=== PATIENT | male | born 1985 | race Caucasian/White ===

== ENCOUNTER 2022-04-12 18:32 | Emergency (ER) | payer SELFPAY ==
--- NOTE | ~2022-04-12 | US_ITS ---
EXAMINATION: ULTRASOUND ABDOMEN COMPLETE. CHEST X-RAY. CLINICAL INFORMATION: Epigastric/right upper quadrant tenderness to palpation. Chest pain. COMPARISON: None TECHNIQUE: Chest AP 1 view. Limited ultrasound imaging of right upper quadrant and left upper quadrant was performed. FINDINGS: Chest x-ray: The lungs are well-expanded and clear. Heart size and pulmonary vascularity is normal. No gross bony abnormality seen. Limited abdomen ultrasound: The pancreas is obscured by overlying gas. Visualized mid and the distal abdominal aorta are normal caliber. Proximal segment is not seen. IVC is normal caliber. The liver is normal size, contour and density. No focal lesion seen. There is no intrahepatic ductal dilatation. The gallbladder is normally distended without any echogenic stones or wall thickening. CBD is nondilated measuring 0.3 cm. Right kidney measures 10.2 cm and left kidney measures 12.5 cm. There is normal cortical thickness. No echogenic stones or hydronephrosis seen. Spleen measures 11.3 cm. US/US abdomen complete IMPRESSION: Unremarkable limited abdomen ultrasound with no focal abnormality seen in the right or left upper quadrant. Unremarkable chest x-ray.
[2022-04-12 19:23] VITALS: BP 142/82; PULSE 86; RESP 20; TEMP 36.5; O2SAT 99; BMI 29.3
--- NOTE | 2022-04-12 19:24 | ED.ABDPAIN ---
HPI - Abdominal Pain General Chief Complaint: Abdominal Pain <MYA Echevarria - Last Filed: 04/12/22 19:28> Stated Complaint: severe abdominal pain, to chest and throat <MYA Echevarria - Last Filed: 04/12/22 19:28> Time Seen by Provider: 04/13/22 02:07 <MYA Echevarria - Last Filed: 04/12/22 19:28> Source: patient and family <Sree Sears MD - Last Filed: 04/13/22 02:45> Mode of arrival: ambulatory <Sree Sears MD - Last Filed: 04/13/22 02:45> Limitations: no limitations <Sree Sears MD - Last Filed: 04/13/22 02:45> History of Present Illness HPI narrative: 36-year-old male came in for evaluation of bilateral chest wall pain since this morning, patient woke up from sleep found to have epigastric pain and bilateral chest wall pain radiated to the back and upper neck, pain is worsening with movement and taking a deep breath, pain is constant since this morning, no SOB, 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 No fever, no chills. <Sree Sears MD - Last Filed: 04/13/22 02:45> Related Data Allergies/Adverse Reactions: Allergies Allergy/AdvReac Type Severity Reaction Status Date / Time No Known Allergies Allergy Verified 04/12/22 19:26 <MYA Echevarria - Last Filed: 04/12/22 19:28> Review of Systems Review of Systems All other systems are reviewed and are negative Constitutional: Reports as per HPI and Reports no additional constitutional complaints Eyes: Reports as per HPI and Reports no additional eye complaints Reports system reviewed and no additional complaints, except as documented Cardiovascular: Reports as per HPI and Reports no additional cardiovascular complaints Respiratory: Reports as per HPI and Reports no additional respiratory complaints Gastrointestinal: Reports as per HPI and Reports no additional gastrointestinal complaints Genitourinary: Reports no additional female genitourinary complaints Musculoskeletal: Reports no additional musculoskeletal complaints Skin/Breast: Reports system reviewed and no additional complaints, except as docu Psychiatric: Reports no additional psychiatric complaints Endocrine: Reports no additional endocrine complaints Hematologic/Lymphatic: Reports no additional hematologic/lymphatic complaints Allergic/Immunologic: Reports no additional allergic/immunologic complaints Reports system reviewed and no additional complaints, except as documented and Reports Abnormal speech present <Sree Sears MD - Last Filed: 04/13/22 02:45> [facility] Social History Social History: Social History Advance Directives: No Advance Directives Information Provided: Yes <MYA Echevarria - Last Filed: 04/12/22 19:28> Physical Exam ED Vital Signs: Vital Signs - 24 hr 04/12/22 19:23 Temperature 97.7 F Pulse Rate 86 Respiratory Rate 20 Blood Pressure 142/82 H Pulse Oximetry 99 Oxygen Delivery Method Room Air BMI result Body Mass Index 29.3 <MYA Echevarria - Last Filed: 04/12/22 19:28> Vital Signs - 24 hr 04/12/22 19:23 Temperature 97.7 F Pulse Rate 86 Respiratory Rate 20 Blood Pressure 142/82 H Pulse Oximetry 99 Oxygen Delivery Method Room Air BMI result Body Mass Index 29.3 vital signs have been reviewed as appeared to be correct. Blood pressure normal. Heart rate normal. Respiration rate normal. Temperature normal. Oxygen saturation normal. <Sree Sears MD - Last Filed: 04/13/22 02:45> Appearance: Alert. Oriented X3. No acute distress. Head: Normal external exam. Normocephalic. Atraumatic. No Meng signs noted. No raccoon eyes noted Eyes: PERRLA. EOMI. Conjunctiva and sclera normal. Eyelids normal. ENT: TM's Normal. Pharynx normal. Uvula midline. Moist mucous membranes. No trismus noted. No drooling noted. No muffled voice noted. Neck: Normal inspection. Neck supple. FROM. No adenopathy. Thyroid Normal. No meningeal signs. No neck mass noted. CVS: Normal heart rate and rhythm. Heart sound normal. No murmurs noted. Pulses normal throughout. Respiratory: No respiratory distress. Reproducible bilateral chest wall tenderness diffuse to touch, no step-off, no deformity. Painless inspiration. Breath sounds normal. No wheezes/rales/rhonchi noted. No accessory muscle usage noted or decreased air movement noted. Abdomen: Soft and nontender. Bowel sounds normal in all 4 quadrants. No distention noted. No organomegaly noted. No visible injury noted. Back: No CVA tenderness. Full range of motion noted. Skin: Skin warm and dry. Normal skin color. Normal skin turgor. No rashes/lesions/lacerations noted. Extremities: No lower extremity edema. Extremities exhibit normal range of motion. Extremities nontender. Neuro: Oriented X 3. Cranial nerve exam: II-XII are grossly intact No motor deficit. No sensory deficit. Reflexes normal. <Sree Sears MD - Last Filed: 04/13/22 02:45> Course Course Course Narrative: RME-- 36-year-old male with no significant past medical history presenting to the ED complaining of epigastric abdominal pain radiating to left shoulder and up chest since yesterday. Reports associated dizziness. Pain worse with eating and deep breathing. Abdomen soft with epigastric/RUQ tenderness, no pedal edema EKG, labs, CXR, abdomen ultrasound, IVF ordered in triage <MYA Echevarria - Last Filed: 04/12/22 19:28> Reevaluation(s) Reevaluation #1: 36-year-old male came in with bilateral chest wall pain appears to be a muscle related chest pain feels better with ibuprofen. <Sree Sears MD - Last Filed: 04/13/22 02:45> Time: 02:39 <Sree Sears MD - Last Filed: 04/13/22 02:45> Medical Decision Making Differential Diagnosis Differential Diagnoses: The differential diagnosis associated with the presentation includes ( cardiac event/pneumonia/pneumothorax /chest wall pain due to myofascial etiology / kidney stones/UTI.) <Sree Sears MD - Last Filed: 04/13/22 02:45> Lab Data MDM Lab Attestation statement: I reviewed the patient's lab results. <Sree Sears MD - Last Filed: 04/13/22 02:45> Result Diagrams: : 04/12/22 20:57 04/12/22 20:57 <MYA Echevarria - Last Filed: 04/12/22 19:28> Labs: Lab Results 04/12/22 04/12/22 04/12/22 Range/Units 20:57 20:57 20:57 WBC 8.0 (4.8-10.8) X10*3/uL RBC 4.97 (4.60-5.80) X10*6/uL Hgb 14.3 (14.0-18.0) g/dl Hct 42.8 (42.0-52.0) % MCV 86.1 (80.0-98.0) fL MCH 28.8 (27.0-33.0) pg MCHC 33.4 (31.0-36.0) g/dl RDW 12.9 (11.0-16.0) % Plt Count 224 (160-400) X10*3/uL MPV 9.9 (9.4-12.4) fL Immature Gran % (Auto) 0.4 (0.0-0.4) % Neut % (Auto) 66.1 (45-73) % Lymph % (Auto) 23.4 (20-40) % [place] % (Auto) 8.8 (2-11) % Eos % (Auto) 0.9 (0-4) % Baso % (Auto) 0.4 (0-2) % Lymph # (Auto) 1.9 (1.2-4.9) X10*3/uL [place] # (Auto) 0.7 (0.1-1.2) X10*3/uL Eos # (Auto) 0.1 (0.0-0.4) X10*3/uL Baso # (Auto) 0.0 (0.0-0.2) X10*3/uL Abs Immat Gran (auto) 0.03 (0.00-0.03) X10*3/uL Absolute Neuts (auto) 5.3 (2.0-8.3) x10*3/uL Absolute Nucleated RBC 0.000 (0.0-0.012) X10*3/uL Nucleated RBC % (auto) 0.0 (0.0-0.2) /100WBC Sodium 136 (135-145) mmol/L Potassium 3.7 (3.3-5.1) mmol/L Chloride 101 (96-108) mmol/L Carbon Dioxide 26 (22-29) mmol/L Anion Gap 13 (12-20) BUN 11 (9-16) mg/dL Creatinine 0.76 (0.5-1.4) mg/dL Estim Creat Clear Calc 143.1 Estimated GFR > 60 Random Glucose 102 (60-115) mg/dL Calcium 9.4 (8.4-10.2) mg/dL Magnesium 2.3 (1.6-2.6) mg/dL Total Bilirubin 0.7 (0.0-1.0) mg/dL Direct Bilirubin 0.3 (0.0-0.5) mg/dL AST 23 (5-37) U/L ALT 30 (0-40) U/L Alkaline Phosphatase 78 (39-117) U/L Troponin I High Sens < 3.5 (<3.5-35.0) ng/L Total Protein 7.3 (6.5-8.0) g/dL Albumin 4.4 (3.5-5.0) g/dL Lipase 45 (8-78) U/L Urine Color Urine Appearance Urine pH (5.0-9.0) Ur Specific [place] (1.005-1.025) Urine Protein (Neg-Trace) mg/dL Urine Glucose (UA) (Negative) mg/dL Urine Ketones (Negative) mg/dL Urine Blood (Negative) Urine Nitrite (Negative) Ur Leukocyte Esterase (Negative) 04/12/22 Range/Units 21:01 WBC (4.8-10.8) X10*3/uL RBC (4.60-5.80) X10*6/uL Hgb (14.0-18.0) g/dl Hct (42.0-52.0) % MCV (80.0-98.0) fL MCH (27.0-33.0) pg MCHC (31.0-36.0) g/dl RDW (11.0-16.0) % Plt Count (160-400) X10*3/uL MPV (9.4-12.4) fL Immature Gran % (Auto) (0.0-0.4) % Neut % (Auto) (45-73) % Lymph % (Auto) (20-40) % [place] % (Auto) (2-11) % Eos % (Auto) (0-4) % Baso % (Auto) (0-2) % Lymph # (Auto) (1.2-4.9) X10*3/uL [place] # (Auto) (0.1-1.2) X10*3/uL Eos # (Auto) (0.0-0.4) X10*3/uL Baso # (Auto) (0.0-0.2) X10*3/uL Abs Immat Gran (auto) (0.00-0.03) X10*3/uL Absolute Neuts (auto) (2.0-8.3) x10*3/uL Absolute Nucleated RBC (0.0-0.012) X10*3/uL Nucleated RBC % (auto) (0.0-0.2) /100WBC Sodium (135-145) mmol/L Potassium (3.3-5.1) mmol/L Chloride (96-108) mmol/L Carbon Dioxide (22-29) mmol/L Anion Gap (12-20) BUN (9-16) mg/dL Creatinine (0.5-1.4) mg/dL Estim Creat Clear Calc Estimated GFR Random Glucose (60-115) mg/dL Calcium (8.4-10.2) mg/dL Magnesium (1.6-2.6) mg/dL Total Bilirubin (0.0-1.0) mg/dL Direct Bilirubin (0.0-0.5) mg/dL AST (5-37) U/L ALT (0-40) U/L Alkaline Phosphatase (39-117) U/L Troponin I High Sens (<3.5-35.0) ng/L Total Protein (6.5-8.0) g/dL Albumin (3.5-5.0) g/dL Lipase (8-78) U/L Urine Color Dark Yellow Urine Appearance Clear Urine pH 8.0 (5.0-9.0) Ur Specific [place] 1.025 (1.005-1.025) Urine Protein Trace (Neg-Trace) mg/dL Urine Glucose (UA) Negative (Negative) mg/dL Urine Ketones Trace (Negative) mg/dL Urine Blood Negative (Negative) Urine Nitrite Negative (Negative) Ur Leukocyte Esterase Negative (Negative) <MYA Echevarria - Last Filed: 04/12/22 19:28> Lab Results 01/07/3004/12/22 04/12/22 Range/Units 20:57 20:57 20:57 WBC 8.0 (4.8-10.8) X10*3/uL RBC 4.97 (4.60-5.80) X10*6/uL Hgb 14.3 (14.0-18.0) g/dl Hct 42.8 (42.0-52.0) % MCV 86.1 (80.0-98.0) fL MCH 28.8 (27.0-33.0) pg MCHC 33.4 (31.0-36.0) g/dl RDW 12.9 (11.0-16.0) % Plt Count 224 (160-400) X10*3/uL MPV 9.9 (9.4-12.4) fL Immature Gran % (Auto) 0.4 (0.0-0.4) % Neut % (Auto) 66.1 (45-73) % Lymph % (Auto) 23.4 (20-40) % [place] % (Auto) 8.8 (2-11) % Eos % (Auto) 0.9 (0-4) % Baso % (Auto) 0.4 (0-2) % Lymph # (Auto) 1.9 (1.2-4.9) X10*3/uL [place] # (Auto) 0.7 (0.1-1.2) X10*3/uL Eos # (Auto) 0.1 (0.0-0.4) X10*3/uL Baso # (Auto) 0.0 (0.0-0.2) X10*3/uL Abs Immat Gran (auto) 0.03 (0.00-0.03) X10*3/uL Absolute Neuts (auto) 5.3 (2.0-8.3) x10*3/uL Absolute Nucleated RBC 0.000 (0.0-0.012) X10*3/uL Nucleated RBC % (auto) 0.0 (0.0-0.2) /100WBC Sodium 136 (135-145) mmol/L Potassium 3.7 (3.3-5.1) mmol/L Chloride 101 (96-108) mmol/L Carbon Dioxide 26 (22-29) mmol/L Anion Gap 13 (12-20) BUN 11 (9-16) mg/dL Creatinine 0.76 (0.5-1.4) mg/dL Estim Creat Clear Calc 143.1 Estimated GFR > 60 Random Glucose 102 (60-115) mg/dL Calcium 9.4 (8.4-10.2) mg/dL Magnesium 2.3 (1.6-2.6) mg/dL Total Bilirubin 0.7 (0.0-1.0) mg/dL Direct Bilirubin 0.3 (0.0-0.5) mg/dL AST 23 (5-37) U/L ALT 30 (0-40) U/L Alkaline Phosphatase 78 (39-117) U/L Troponin I High Sens < 3.5 (<3.5-35.0) ng/L Total Protein 7.3 (6.5-8.0) g/dL Albumin 4.4 (3.5-5.0) g/dL Lipase 45 (8-78) U/L Urine Color Urine Appearance Urine pH (5.0-9.0) Ur Specific [place] (1.005-1.025) Urine Protein (Neg-Trace) mg/dL Urine Glucose (UA) (Negative) mg/dL Urine Ketones (Negative) mg/dL Urine Blood (Negative) Urine Nitrite (Negative) Ur Leukocyte Esterase (Negative) 04/12/22 Range/Units 21:01 WBC (4.8-10.8) X10*3/uL RBC (4.60-5.80) X10*6/uL Hgb (14.0-18.0) g/dl Hct (42.0-52.0) % MCV (80.0-98.0) fL MCH (27.0-33.0) pg MCHC (31.0-36.0) g/dl RDW (11.0-16.0) % Plt Count (160-400) X10*3/uL MPV (9.4-12.4) fL Immature Gran % (Auto) (0.0-0.4) % Neut % (Auto) (45-73) % Lymph % (Auto) (20-40) % [place] % (Auto) (2-11) % Eos % (Auto) (0-4) % Baso % (Auto) (0-2) % Lymph # (Auto) (1.2-4.9) X10*3/uL [place] # (Auto) (0.1-1.2) X10*3/uL Eos # (Auto) (0.0-0.4) X10*3/uL Baso # (Auto) (0.0-0.2) X10*3/uL Abs Immat Gran (auto) (0.00-0.03) X10*3/uL Absolute Neuts (auto) (2.0-8.3) x10*3/uL Absolute Nucleated RBC (0.0-0.012) X10*3/uL Nucleated RBC % (auto) (0.0-0.2) /100WBC Sodium (135-145) mmol/L Potassium (3.3-5.1) mmol/L Chloride (96-108) mmol/L Carbon Dioxide (22-29) mmol/L Anion Gap (12-20) BUN (9-16) mg/dL Creatinine (0.5-1.4) mg/dL Estim Creat Clear Calc Estimated GFR Random Glucose (60-115) mg/dL Calcium (8.4-10.2) mg/dL Magnesium (1.6-2.6) mg/dL Total Bilirubin (0.0-1.0) mg/dL Direct Bilirubin (0.0-0.5) mg/dL AST (5-37) U/L ALT (0-40) U/L Alkaline Phosphatase (39-117) U/L Troponin I High Sens (<3.5-35.0) ng/L Total Protein (6.5-8.0) g/dL Albumin (3.5-5.0) g/dL Lipase (8-78) U/L Urine Color Dark Yellow Urine Appearance Clear Urine pH 8.0 (5.0-9.0) Ur Specific [place] 1.025 (1.005-1.025) Urine Protein Trace (Neg-Trace) mg/dL Urine Glucose (UA) Negative (Negative) mg/dL Urine Ketones Trace (Negative) mg/dL Urine Blood Negative (Negative) Urine Nitrite Negative (Negative) Ur Leukocyte Esterase Negative (Negative) <Sree Sears MD - Last Filed: 04/13/22 02:45> Independent Interpretation I performed an independent interpretation of an: EKG ( Normal sinus rhythm at 67 beats per minute, normal intervals, no ST-T changes.) and Plain X-Ray ( No acute intrathoracic pathology.) <Sree Sears MD - Last Filed: 04/13/22 02:45> Radiology Impression Discussion of test interpretation with radiology: I have reviewed the radiologist's reading. <Sree Sears MD - Last Filed: 04/13/22 02:45> Medications Administered Discontinued Medications Generic Name Dose Route Start Last Admin Trade Name Freq PRN Reason Stop Dose Admin Sodium Chloride 1,000 mls @ 999 mls/hr 04/12/22 19:30 04/13/22 01:29 Ns IV 04/12/22 20:30 Not Given .Q1H1M MARTINEZ Ondansetron HCl 4 mg 04/12/22 19:25 04/13/22 01:29 Ondansetron Hcl 4 Mg/2 Ml Vial IVPUSH 04/12/22 19:26 Not Given ONCE ONE <MYA Echevarria - Last Filed: 04/12/22 19:28> Medications Administered Discontinued Medications Generic Name Dose Route Start Last Admin Trade Name Freq PRN Reason Stop Dose Admin Sodium Chloride 1,000 mls @ 999 mls/hr 04/12/22 19:30 04/13/22 01:29 Ns IV 04/12/22 20:30 Not Given .Q1H1M MARTINEZ Ondansetron HCl 4 mg 04/12/22 19:25 04/13/22 01:29 Ondansetron Hcl 4 Mg/2 Ml Vial IVPUSH 04/12/22 19:26 Not Given ONCE ONE <Sree Sears MD - Last Filed: 04/13/22 02:45> Discharge Plan Discharge Clinical Impression: Bilateral myofascial pain <MYA Echevarria Last Filed: 04/12/22 19:28> Patient Disposition: Home, Self-Care <MYA Echevarria Last Filed: 04/12/22 19:28> Instructions: Musculoskeletal Pain (ED) <MYA Echevarria Last Filed: 04/12/22 19:28> Additional Instructions: take ibuprofen [id number] 200 mg tablet every 6 hours if needed for pain. <MYA Echevarria - Last Filed: 04/12/22 19:28> Stand Alone Forms: Work/School Release <MYA Echevarria - Last Filed: 04/12/22 19:28>
--- NOTE | 2022-04-12 19:25 | ECG_ITS ---
Test Reason : ABDOMINAL PAIN Blood Pressure : / mmHG Vent. Rate : 067 BPM Atrial Rate : 067 BPM P-R Int : 152 ms QRS Dur : 106 ms QT Int : 382 ms P-R-T Axes : 054 009 024 degrees QTc Int : 403 ms Normal sinus rhythm with sinus arrhythmia Normal ECG No previous ECGs available Referred By: Yudy Fu Electronically Signed By:ALLI BOOKER
[2022-04-12 21:06] LABS: MANUAL DIFF FLAG NO
[2022-04-12 21:07] LABS: Basophils Percent Auto 0.4 % (0-2); Eosinophils Absolute Auto 0.1 X10*3/uL (0.0-0.4); Eosinophils Percent Auto 0.9 % (0-4); Hematocrit 42.8 % (42.0-52.0); Hemoglobin 14.3 g/dl (14.0-18.0); Imm Gran Abs Auto 0.03 X10*3/uL (0.00-0.03); Imm Gran Pct Auto 0.4 % (0.0-0.4); Lymphocytes Absolute Auto 1.9 X10*3/uL (1.2-4.9); Lymphocytes Percent Auto 23.4 % (20-40); Mean Corpuscular HGB Conc 33.4 g/dl (31.0-36.0); Mean Corpuscular Hemoglobin 28.8 pg (27.0-33.0); Mean Corpuscular Volume 86.1 fL (80.0-98.0); Mean Platelet Volume 9.9 fL (9.4-12.4); Monocytes Absolute Auto 0.7 X10*3/uL (0.1-1.2); Monocytes Percent Auto 8.8 % (2-11); Neutrophils Absolute Auto 5.3 x10*3/uL (2.0-8.3); Neutrophils Percent Auto 66.1 % (45-73); Platelet Count 224 X10*3/uL (160-400); Red Blood Count 4.97 X10*6/uL (4.60-5.80); Red Cell Distribution Width 12.9 % (11.0-16.0)
[2022-04-12 21:08] LABS: Appearance Urine Clear; Color Urine Dark Yellow; Glucose Urine UA Negative (Negative); Leukocyte Esterase Urine Negative (Negative); Nitrite Urine Negative (Negative); Specific Gravity - Urine 1.025 (1.005-1.025); Urine Blood Negative (Negative); Urine Ketones Trace mg/dL (Negative); Urine Protein Trace mg/dL (Neg-Trace)
[2022-04-12 21:28] LABS: Alanine Aminotransferase 30 U/L (0-40); Albumin Level 4.4 g/dL (3.5-5.0); Alkaline Phosphatase 78 U/L (39-117); Anion Gap 13 (12-20); Aspartate Amino Transferase 23 U/L (5-37); Bilirubin Direct 0.3 mg/dL (0.0-0.5); Bilirubin Total 0.7 mg/dL (0.0-1.0); Blood Urea Nitrogen 11 mg/dL (9-16); Calcium 9.4 mg/dL (8.4-10.2); Carbon Dioxide 26 mmol/L (22-29); Chloride 101 mmol/L (96-108); Creatinine Clr Calc Pharmacy 143.1; Estimated Glomerular Filt Rate > 60; Glucose Random 102 mg/dL (60-115); Lipase 45 U/L (8-78); Magnesium 2.3 mg/dL (1.6-2.6); Potassium 3.7 mmol/L (3.3-5.1); Sodium 136 mmol/L (135-145); Total Protein 7.3 g/dL (6.5-8.0)
[2022-04-12 21:35] LABS: Troponin-I High Sensitivity < 3.5 ng/L (<3.5-35.0)
[2022-04-13] MEDS: Ibuprofen 600 MG TABLET PO (02:50)
== END 2022-04-13 02:54 | disposition home or self-care (01) ==
PROVIDERS: Physician Assistant; Emergency Provider Emergency Medicine
DX: M79.18 Myalgia, other site (principal)
CPT/HCPCS: 36415; 71045; 76700; 80048; 80076; 81003; 83690; 83735; 84484; 85025; 93005; 99284

== ENCOUNTER 2022-12-14 15:22 | Emergency (ER) | payer OTHER, SELFPAY ==
--- NOTE | ~2022-12-14 | XR_ITS ---
EXAMINATION: XR THORACIC SPINE CLINICAL INFORMATION: Back pain, garage door fell onto back COMPARISON: None available. TECHNIQUE: Frontal and lateral views of the dorsal spine FINDINGS: There is no fracture or bone destruction seen and the vertebral alignment is normal. There is no disc space narrowing. There is no abnormality of the paraspinal soft tissues. XR/XR thoracic spine 3V IMPRESSION: No acute fracture or subluxation.
--- NOTE | ~2022-12-14 | XR_ITS ---
EXAMINATION: XR LUMBOSACRAL SPINE CLINICAL INFORMATION: Low back pain, trauma, garage door fell on to back COMPARISON: None available. TECHNIQUE: Three views of the lumbosacral spine. FINDINGS: The vertebral bodies and posterior elements are normal. The disc spaces are preserved and the vertebral alignment is normal. The paraspinal soft tissues are normal. XR/XR lumbar spine 2-3V IMPRESSION: No acute fracture or subluxation of the lumbar spine.
--- NOTE | ~2022-12-14 | CT_ITS ---
EXAMINATION: CT HEAD WITHOUT CONTRAST CLINICAL INFORMATION: Trauma, garage door fell on head and neck COMPARISON: None TECHNIQUE: Contiguous axial imaging was performed from the skull base to vertex without intravenous administration of contrast. This CT examination was performed using dose optimization techniques as appropriate, variously including the following: *Automated exposure control *Adjustment of mA and/or kV according to patient size (this includes techniques or standardized protocols for targeted exams where dose is matched to indication/reason for exam; i.e. extremities or head) *Use of iterative reconstruction technique DLP: 685 mGy-cm FINDINGS: The ventricles and sulci are normal in size and configuration. No acute hemorrhage, mass effect or shift is evident. Waters-white differentiation is maintained. In the posterior fossa, the brainstem, cerebellum and fourth ventricle image normally. The orbits and calvarium are intact. Mucosal thickening is noted within bilateral ethmoid air cells. Otherwise, the paranasal sinuses and mastoid air cells are well pneumatized and clear. CT/CT head/brain wo IV con IMPRESSION: 1. Unremarkable noncontrast brain CT. No acute hemorrhage, mass effect or shift.
--- NOTE | ~2022-12-14 | CT_ITS ---
EXAMINATION: CT CERVICAL SPINE WITHOUT CONTRAST CLINICAL INFORMATION: Trauma, garage door fell on neck COMPARISON: None available. TECHNIQUE: Stable helical unenhanced images were acquired through the cervical spine. Reformatted coronal and sagittal images were acquired from the helical data set. This CT examination was performed using dose optimization techniques as appropriate, variously including the following: *Automated exposure control *Adjustment of mA and/or kV according to patient size (this includes techniques or standardized protocols for targeted exams where dose is matched to indication/reason for exam; i.e. extremities or head) *Use of iterative reconstruction technique DLP: 577.26 mGy-cm FINDINGS: There is no prevertebral swelling. Vertebral body height and alignment are maintained. No fracture, subluxation or bone lesion is evident. The cervical medullary and cervicothoracic junctions are intact, as is the odontoid process and atlantoaxial articulation. The paraspinal soft tissues are normal. No cervical mass or adenopathy is identified. The lung apices are clear. CT/CT cervical spine wo IV con IMPRESSION: No acute fracture or subluxation of the cervical spine. Fleischner guidelines were followed.
[2022-12-14 15:40] VITALS: BP 152/92; PULSE 84; RESP 18; TEMP 37.2; O2SAT 99; BMI 28.1
--- NOTE | 2022-12-14 15:41 | ED.HEATRA ---
HPI - Head Injury General Chief complaint: Head Injury Stated complaint: garage down fell on head work inj Time Seen by Provider: 12/14/22 17:30 Source: patient, family, RN notes reviewed and old records reviewed Mode of arrival: ambulatory Limitations: no limitations History of Present Illness HPI Narrative: 37-year-old with no significant medical history is here today for headache. 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 Patient reports that the door was held by a post that someone trip over and holding a large to or showed down on to his head. Patient reports that he did not fall into the ground. Started feeling dizzy. Denies any nausea or vomiting. Reports having a headache, neck pain, upper and lower back pain. CT scan and x-rays all reviewed and they were negative for any acute findings. Patient does not have any laceration. MD Complaint: head injury and head pain Onset (ago): hour(s) Mechanism of Injury: work related injury Place: work Loss of Consciousness: no Location of injury: parietal Severity: moderate Severity scale (1-10): 5 Related Data Previous Rx's Medication Instructions Recorded acetaminophen 325 mg capsule 650 mg (2 x 325 mg) PO Q6H PRN 12/14/22 pain #20 caps ibuprofen 600 mg tablet 600 mg PO Q8H PRN pain #20 tabs 12/14/22 Allergies Allergy/AdvReac Type Severity Reaction Status Date / Time No Known Allergies Allergy Verified 04/12/22 19:26 Review of Systems Review of Systems: Yes all other systems are reviewed and are negative Constitutional: Constitutional: Reports no additional constitutional complaints Eyes: Eyes: Reports no additional eye complaints ENT: Reports system reviewed and no additional complaints, except as documented Cardiovascular: Cardiovascular: Reports no additional cardiovascular complaints Respiratory: Respiratory: Reports no additional respiratory complaints Gastrointestinal: Gastrointestinal: Reports no additional gastrointestinal complaints Musculoskeletal: Musculoskeletal: Reports no additional musculoskeletal complaints and Denies abnormal gait Integumentary/Breasts: Skin/Breast: Reports system reviewed and no additional complaints, except as docu Neurologic: Reports system reviewed and no additional complaints, except as documented and Denies abnormal gait PMFSH Social History Social History Advance Directives: No Advance Directives Information Provided: No Physical Exam Vital Signs: Vital Signs: Last Vital Signs Temp 98.9 F 12/14/22 15:40 Pulse 84 12/14/22 15:40 Resp 18 12/14/22 15:40 BP 152/92 H 12/14/22 15:40 Pulse Ox 99 12/14/22 15:40 O2 Del Method Room Air 12/14/22 15:40 BMI result Body Mass Index 28.1 Const: General: healthy appearing, no acute distress and well developed Nutritional Appearance: well nourished Orientation/consciousness: patient oriented x3 HEENT: Head: Yes normal to inspection, Yes normocephalic and Yes contusion Ears: hearing grossly normal bilaterally General nose exam: Normal external nose present Face and sinus: Yes normal facial exam Mouth: Normal oral and palatal mucosa present Throat: Yes posterior oropharynx normal, Yes tonsils normal and Yes uvula midline Eyes: General: appearance normal, both eyes and all related structures Neck: Neck: Yes normal visual inspection, Yes full ROM and Yes trachea midline Thyroid: Thyroid normal Resp: Effort & Inspection: normal respiratory effort, able to speak in complete sentences, no tracheal deviation and symmetric chest movement Auscultation: clear to auscultation bilaterally Cardio: Rate: regular rate Heart sounds: S1 normal heart sound present and S2 normal heart sound present : General: Yes no CVA tenderness Back/Spine/Pelvis: Back: no CVA tenderness Cervical Spine: normal cervical lordosis Thoracic/Lumbar Spine: thoracic and lumbar spine normal to inspection Pelvis: no pain with anterior-posterior compression Skin: General skin exam: elasticity normal, turgor normal and dry skin Neuro: General: patient oriented x3 Psych: Appearance: grossly normal Mental Status: mental status grossly normal Speech and movement: Normal speech and movement present Course Course Course Narrative: WAYLON-15:45pm - 37yoM presenting to the ER with complaints of dizziness and headache after he had a head injury at work prior to arrival. He reports that he was standing and the garage door unloading the truck when a faulty door shut down onto his head. He did not fall down to the ground but immediately started feeling dizzy and having a headache. This happened prior to arrival. Denies any symptoms prior to the head injury. Also reports neck and lower back pain after this head injury. Denies any other symptoms complaints or concerns at this time. Plan: Patient is stable to go back to the waiting room to be evaluated in EM. CT scan of brain/cervical spine, x-ray of thoracic and lumbar spine were ordered at this time. 37-year-old with no significant medical history is here today for headache. 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 Patient reports that the door was held by a post that someone trip over and holding a large to or showed down on to his head. Patient reports that he did not fall into the ground. Started feeling dizzy. Denies any nausea or vomiting. Reports having a headache, neck pain, upper and lower back pain. CT scan and x-rays all reviewed and they were negative for any acute findings. Patient does not have any laceration. Can be sent home with pain management. Discussed with patient the importance of following with his primary care provider. Avoid watching TV have chronic devices the next couple days. Medical Decision Making Medical Decision Making MDM Narrative: 37-year-old with no significant medical history is here today for headache. 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 Patient reports that the door was held by a post that someone trip over and holding a large to or showed down on to his head. Patient reports that he did not fall into the ground. Started feeling dizzy. Denies any nausea or vomiting. Reports having a headache, neck pain, upper and lower back pain. CT scan and x-rays all reviewed and they were negative for any acute findings. Patient does not have any laceration. Can be sent home with pain management. Discussed with patient the importance of following with his primary care provider. Avoid watching TV have chronic devices the next couple days. Independent Interpretation I performed an independent interpretation of an: Plain X-Ray and CT Scan Radiology Impression Discussion of test interpretation with radiology: I have reviewed the radiologist's reading. Radiologist Impression: HEAD CT FINDINGS: The ventricles and sulci are normal in size and configuration. No acute hemorrhage, mass effect or shift is evident. Waters-white differentiation is maintained. In the posterior fossa, the brainstem, cerebellum and fourth ventricle image normally. The orbits and calvarium are intact. Mucosal thickening is noted within bilateral ethmoid air cells. Otherwise, the paranasal sinuses and mastoid air cells are well pneumatized and clear. CT/CT head/brain wo IV con IMPRESSION: 1. Unremarkable noncontrast brain CT. No acute hemorrhage, mass effect or shift. CERVICAL SPINE CT FINDINGS: There is no prevertebral swelling. Vertebral body height and alignment are maintained. No fracture, subluxation or bone lesion is evident. The cervical medullary and cervicothoracic junctions are intact, as is the odontoid process and atlantoaxial articulation. The paraspinal soft tissues are normal. No cervical mass or adenopathy is identified. The lung apices are clear. CT/CT cervical spine wo IV con IMPRESSION: No acute fracture or subluxation of the cervical spine. THORACIC SPINE X-RAY FINDINGS: There is no fracture or bone destruction seen and the vertebral alignment is normal. There is no disc space narrowing. There is no abnormality of the paraspinal soft tissues. XR/XR thoracic spine 3V IMPRESSION: No acute fracture or subluxation. LUMBAR SPINE X-RAY FINDINGS: The vertebral bodies and posterior elements are normal. The disc spaces are preserved and the vertebral alignment is normal. The paraspinal soft tissues are normal. XR/XR lumbar spine 2-3V IMPRESSION: No acute fracture or subluxation of the lumbar spine. Discharge Plan Discharge Clinical Impression: Closed head injury Patient Disposition: Home, Self-Care Instructions: Head Injury (ED) Additional Instructions: CT scans and x-rays were negative. Please make sure that you will avoid electronic devices for the next 2-3 days. Take Tylenol and ibuprofen for pain. Apply ice to affected areas for the next 72 hours. Please return to emergency department if you have symptoms of nausea, vomiting, increased dizziness and headaches. Please follow-up with your primary care provided in the next couple days. Prescriptions: New ibuprofen 600 mg tablet 600 mg PO Q8H PRN (Reason: pain) Qty: 20 0RF acetaminophen 325 mg capsule 650 mg PO Q6H PRN (Reason: pain) Qty: 20 0RF Stand Alone Forms: Work/School Release
== END 2022-12-14 18:05 | disposition home or self-care (01) ==
PROVIDERS: Emergency Provider Emergency Medicine
DX: S09.90XA Unspecified injury of head, initial encounter (principal); M54.50 Low back pain, unspecified; R51.9 Headache, unspecified; M54.2 Cervicalgia; Y29.XXXA Contact with blunt object, undetermined intent, initial encounter; Y93.9 Activity, unspecified; Y92.9 Unspecified place or not applicable; Y99.9 Unspecified external cause status
CPT/HCPCS: 70450; 72072; 72100; 72125; 99282; 99284